=== PATIENT | male | born 1950 | race Two or more races ===

== ENCOUNTER 2023-03-22 16:25 | Emergency (ER) | payer OTHER ==
[~2023-03-22] VITALS: Ht 172.7 cm; Wt 70.3 kg
[2023-03-22 16:35] VITALS: BP 150/69; PULSE 90; RESP 18; TEMP 98.3; O2SAT 97
[2023-03-22] MEDS ORDERED: AMOX1TAB8 PO (17:33)
[2023-03-22] MEDS ORDERED: DOXY-690 PO (17:33)
[2023-03-22 17:51] VITALS: BP 150/69; PULSE 90; RESP 18; TEMP 98.3; O2SAT 98
== END 2023-03-22 17:52 | disposition home or self-care (01) ==
LOC: MED 16:25
DX: J18.9 Pneumonia, unspecified organism (principal); E11.9 Type 2 diabetes mellitus without complications; Z79.2 Long term (current) use of antibiotics; Z95.1 Presence of aortocoronary bypass graft
CPT/HCPCS: 71046; 99283; Q0092